=== PATIENT | male | born 1955 | race Caucasian/White ===

== ENCOUNTER → 2024-01-20 14:55 | Outpatient (REF) | payer MEDICARE, SELFPAY | LOC: HWRAD 14:55 | PROVIDERS: ATTENDING PHYSICIAN Podiatrist Foot & Ankle Surgery; FAMILY PHYSICIAN Nurse Practitioner Family | DX: L97.213 Non-pressure chronic ulcer of right calf with necrosis of muscle (principal) | CPT/HCPCS: 73610 ==

== ENCOUNTER → 2024-01-27 11:50 | Outpatient (REF) | payer MEDICARE, SELFPAY | LOC: HWRAD 11:50 | PROVIDERS: ATTENDING PHYSICIAN Internal Medicine | DX: M25.552 Pain in left hip (principal); M06.9 Rheumatoid arthritis, unspecified | CPT/HCPCS: 73502 ==

== ENCOUNTER → 2024-03-04 11:55 | Outpatient (REF) | payer MEDICARE, SELFPAY | LOC: PAVMRI 11:55 | PROVIDERS: ATTENDING PHYSICIAN Physician Assistant; FAMILY PHYSICIAN Internal Medicine | DX: M54.16 Radiculopathy, lumbar region (principal) | CPT/HCPCS: 72148 ==

== ENCOUNTER → 2024-03-11 14:46 | Outpatient (REF) | payer MEDICARE, SELFPAY | LOC: RAD 14:46 | PROVIDERS: ATTENDING PHYSICIAN Podiatrist Foot & Ankle Surgery; FAMILY PHYSICIAN Internal Medicine | DX: I73.89 Other specified peripheral vascular diseases (principal); L97.213 Non-pressure chronic ulcer of right calf with necrosis of muscle | CPT/HCPCS: 93922; 93925 ==

== ENCOUNTER → 2025-03-23 11:49 | Outpatient (REF) | payer MEDICARE, SELFPAY | LOC: HWRAD 11:49 | PROVIDERS: ATTENDING PHYSICIAN Internal Medicine | DX: K21.9 Gastro-esophageal reflux disease without esophagitis (principal); E66.01 Morbid (severe) obesity due to excess calories; R10.13 Epigastric pain | CPT/HCPCS: 76700 ==